=== PATIENT | female | born 1975 | race Caucasian/White ===

== ENCOUNTER 2020-04-13 08:18 | Emergency (ER) | payer MEDICAID ==
[~2020-04-13] VITALS: Ht 170.2 cm; Wt 95.5 kg
[2020-04-13 08:20] VITALS: Ht 170.2 cm; Wt 95.5 kg
[2020-04-13] MEDS ORDERED: CELEXA10 MG PO (08:22)
[2020-04-13] MEDS ORDERED: KLONOPIN0.5 MG PO (08:22)
[2020-04-13 09:06] LABS: BASOPHILS 0.7 % (0-2); HEMATOCRIT 38.9 % (36.0-48.0); HEMOGLOBIN 13.4 g/dL (12-16); IMMATURE GRANULOCYTES 0.2 % (0-5); LYMPHOCYTES 14.2 % (15-50); MCH 32.2 pg (26.0-34.0); MCHC 34.4 g/dL (31.0-37.0); MCV 93.5 fL (80.0-100.0); MEAN PLATELET VOLUME 9.8 fL (7.4-10.4); MONOCYTES 9.8 % (2-11); NEUTROPHILS 68.1 % (40-80); PLATELET COUNT 214 10x3/uL (130-400); RBC 4.16 10x6/uL (4.00-5.40); RDW 11.8 % (11.5-14.5); WBC 4.6 10x3/uL (4.8-10.8)
[2020-04-13 09:17] LABS: CALC OSMOLALITY 275 mosm/kg (275-300); CALCIUM 7.8 mg/dL (8.5-10.1); CARBON DIOXIDE 26.9 mmol/L (21.0-32.0); CHLORIDE - SERUM 106 mmol/L (98-107); CREATININE - SERUM 0.6 mg/dL (0.6-1.3); GLUCOSE 88 mg/dL (74-106); POTASSIUM - SERUM 3.8 mmol/L (3.5-5.1); SODIUM 139 mmol/L (136-145); UREA NITROGEN 11 mg/dL (7-18); eGFR NON AFRICAN AMERICAN > 90 mL/min (90-120)
[2020-04-13 09:26] LABS: ALBUMIN 3.6 g/dL (3.4-5.0); ALKALINE PHOSPHATASE 63 U/L (30-120); ALT (SGPT) 22 U/L (10-68); BILIRUBIN - TOTAL 0.34 mg/dL (0.2-1.3); MAGNESIUM - SERUM 1.9 mg/dL (1.8-2.4); PROTEIN - SERUM 6.5 g/dL (6.4-8.2)
[2020-04-13 09:27] LABS: BILIRUBIN NEGATIVE (NEGATIVE); GLUCOSE NEGATIVE (NEGATIVE); KETONE NEGATIVE (NEGATIVE); NITRITE NEGATIVE (NEGATIVE); SPECIFIC GRAVITY 1.025 (1.005-1.020); UROBILINOGEN NORMAL (NORMAL)
[2020-04-13 09:28] LABS: BACTERIA FEW /hpf (NEGATIVE); WHITE CELLS - URINE 0-5 /hpf (NEGATIVE)
[2020-04-13 09:29] LABS: UDS - AMPHET NEGATIVE QUAL (NEGATIVE); UDS - BARB NEGATIVE QUAL (NEGATIVE); UDS - BENZO NEGATIVE QUAL (NEGATIVE); UDS - COCAINE NEGATIVE QUAL (NEGATIVE); UDS - OPIATE NEGATIVE QUAL (NEGATIVE); UDS - PCP NEGATIVE QUAL (NEGATIVE); UDS - THC POSITIVE QUAL (NEGATIVE)
--- NOTE | 2020-04-13 10:38 | NUR ---
DR. WESLEY NOTIFIED AND REVIEWED PT'S BEHAVIOR AND ASSESSMENT RESULTS. PT IS A LOW RISK PER DR. WESLEY. DR. WESLEY NOTIFIED STATED TO GIVE RESOURCES TO PT AT TIME OF DISCHARGE. NO FURTHER ORDERS AT THIS TIME. RESOURCES REVIEWED WITH PT AND SHE VERBALIZIED UNDERSTANDING.
[2020-04-13 12:57] VITALS: BP 118/67
== END 2020-04-13 12:58 ==
LOC: D.ER 08:18
PROVIDERS: Family Medicine
DX: R45.851 Suicidal ideations (principal); F32.9 Major depressive disorder, single episode, unspecified